=== PATIENT | female | born 1980 ===

== ENCOUNTER 2018-03-27 07:31 | Day surgery (SDC) | payer MEDICAID ==
[2018-03-06 08:48] VITALS: BMI 34.3
[~2018-03-27 07:31] MED LIST: EPINEPHrine 1:1000 Nasal Sol(30mL) ONE; Lidocaine/Epinephrine 1% 1:100000 10 ML IJ ONE; ceFAZolin IV 1 gm in Dextrose 0 GM/0 ML BAG IVPB ONE; ceFAZolin IV 1 gm in Dextrose 2 GM/100 ML BAG IVPB ONE
[2018-03-27] MEDS ORDERED: Acetaminophen-Codeine 300/30 mg Tab PO PRN (08:03)
[2018-03-27] MEDS ORDERED: Dextrose 5%/0.45% NS 1,000 ML IV SCH (08:15)
[2018-03-27] MEDS ORDERED: Rocuronium 10 mg/ml (5 ml) ONE (09:51)
[2018-03-27] MEDS ORDERED: Succinylcholine Chloride 20 mg/ml Syr (5 ml) IV ONE (09:51)
[2018-03-27] MEDS ORDERED: Midazolam 2 MG/2 ML VIAL ONE (09:51)
[2018-03-27] MEDS ORDERED: Propofol 10 mg/ml Inj (20 ML) ONE (09:51)
[2018-03-27] MEDS ORDERED: Neostigmine Methylsulfate 3mg/3ml Syringe IV ONE (11:03)
[2018-03-27] MEDS: HYDROmorphone 0.5 mg/0.5 ml ISec IVP PRN ×2 (11:40→11:45)
--- NOTE | 2018-03-27 13:04 | OP ---
PROCEDURE DATE: 03/27/2018 PREOPERATIVE DIAGNOSES: Large turbinates, sinusitis, deviated septum. POSTOPERATIVE DIAGNOSES: Large turbinates, sinusitis, deviated septum. PROCEDURES: Endoscopic bilateral maxillary antrostomy, endoscopic bilateral ethmoidectomy, endoscopic bilateral sphenoidotomy, endoscopic bilateral frontal sinusotomy, endoscopic bilateral inferior turbinate reduction, septoplasty. SIGNIFICANT FINDINGS: Deviated septum, large inferior turbinates, sinusitis changes noted at ethmoid sinuses, maxillary antrum stenosed on both sides, frontal recess stenosed on both sides, sphenoid antrum stenosed on both sides. DESCRIPTION OF PROCEDURE: The patient was brought into room, placed in supine position. Anesthesia was initiated through an ET tube. The patient was draped in usual manner. Navigation was set up and used throughout the case in order to ensure the skull base and orbits were not entered. Adrenaline-soaked pledgets were inserted into nasal cavity, they remained there for 5 minutes and removed. The septum was injected with lidocaine with epinephrine on both sides. A Sedona incision was made on the left and mucoperichondrial flap was raised. A vertical incision was made in the cartilage leaving 0.5 cm anterior and superior strut and a mucoperichondrial flap was raised on the other side. Deviated portion of the bone and cartilage were removed using forceps and chisel. A quilting suture was used to suture the two flaps together and close the Sedona incision. Next, a 0 degree scope was inserted into the nasal cavity. The inferior turbinates were noted to be enlarged and reduced in size using scissors going from an inferior to superior, anterior to posterior direction on both sides, first on the left, then on the right. Bleeding was controlled using suction cautery. The middle turbinate was injected on both sides. Attention was turned to the left. The middle turbinate was medialized. The uncinate process was medialized using a Hardy elevator and removed using forceps. A debrider was used to enter the ethmoid bulla inferomedially, going posteriorly to the basal lamella anterior and superiorly until the ethmoid bulla was removed. The basal lamella was entered. Posterior ethmoid cells were entered and opened. The skull base was identified and followed anteriorly all the way to the area of the ethmoid air cells. The frontal recess was noted to be stenosed and opened using forceps. Curved suction roll forming machine set up operator navigation was used to locate the maxillary antrum which was noted to be stenosed and opened using forceps. The sphenoid antrum was noted to be stenosed and opened using forceps. Bleeding was controlled using suction cautery. Attention was turned to the other side. The middle turbinate was medialized. The uncinate process was medialized using a Hardy elevator and removed using forceps. A debrider was used to enter the ethmoid bulla inferomedially going posteriorly to the basal lamella anterior and superiorly until the ethmoid bulla was removed. The basal lamella was entered. Posterior ethmoid cells were entered and opened. Skull base was identified and followed anteriorly all the way to the area of the anterior ethmoid air cells. Frontal recess was noted to be stenosed and opened using forceps and the maxillary antrum was located using curved suction hooked up to navigation and opened using forceps. The sphenoid antrum was noted to be stenosed and opened using forceps. Bleeding was controlled using suction cautery. Splints were placed. Stents were placed. The patient was taken off anesthesia and taken to recovery room in stable manner. Chaparro Macias MD
[2018-03-27 13:14] VITALS: BP 132/71; PULSE 66; RESP 18; TEMP 98; O2SAT 100
== END 2018-03-27 14:46 | disposition home or self-care (01) ==
LOC: C.SDS 07:31
PROVIDERS: ATTEND Otolaryngology
DX: J34.2 Deviated nasal septum (principal); J34.3 Hypertrophy of nasal turbinates; J32.0 Chronic maxillary sinusitis; J32.1 Chronic frontal sinusitis; J32.2 Chronic ethmoidal sinusitis; J32.3 Chronic sphenoidal sinusitis
CPT/HCPCS: 30140; 30520; 31253; 31256; 31257; 88304; J0690; J1100; J1170; J2001; J2250; J2405; J2704; J2710; J3010